=== PATIENT | female | born 1990 | race Caucasian/White ===

== ENCOUNTER 2016-11-01 20:17 | Emergency (ER) | payer OTHER ==
[~2016-11-01] VITALS: Ht 157.5 cm; Wt 70.0 kg
[~2016-11-01 20:17] MED LIST: AUGMENTIN875 MG PO; BACTRIM,SEPT1 TABLET PO; Colace PO; Feosol PO; Motrin PO; PRENATAL1 EACH PO; Percocet 5/325,Endoc PO; Tums PO; Tylenol Extra Streng PO
[2016-11-01 21:55] LABS: HEMATOCRIT 38.3 % (36.0-46.0); MCH 29.3 PG (29.0-34.0); MCV 83.8 FL (83-99); MEAN PLAT.VOLUME 9.5 uM^3 (9.5-12.4); PLATELET COUNT 282 K/uL (156-360); RBC DIS.WIDTH-CV 12.4 % (11.8-14.6); RBC DIS.WIDTH-SD 37.5 % (39-53); RED BLOOD COUNT 4.57 M/uL (3.80-5.20); WHITE BLOOD COUNT 9.5 K/uL (4.1-10.2)
[2016-11-01 22:09] LABS: CHLORIDE 106 mEq/L (99-109); POTASSIUM 3.6 mEq/L (3.7-5.4); SODIUM 139 mEq/L (136-147)
[2016-11-01 22:12] LABS: GLUCOSE 83 mg/dL (70-99)
[2016-11-01 22:13] LABS: ANION GAP 10 MEQ/L (2-14)
[2016-11-01 22:14] LABS: TOTAL BILIRUBIN 0.5 mg/dL (0.0-1.0)
[2016-11-01 22:15] LABS: ALKALINE PHOSPHATASE 40 IU/L (3-129); GFR ESTIMATE (CALCULATED) > 59 mL/min/
[2016-11-01 22:16] LABS: UREA NITROGEN (BUN) 9 mg/dL (9-23)
[2016-11-01 22:19] LABS: LIPASE 19 U/L (1.0-51.0)
[2016-11-01 22:25] LABS: QUANTITATIVE HCG < 4.0 MIU/ML
[2016-11-01] MEDS ORDERED: OMEPRAZOLE40 M1 PO (22:43)
[2016-11-01] MEDS ORDERED: CARAFATE1 GM PO (22:43)
[2016-11-01 23:00] VITALS: BP 118/62
== END 2016-11-01 23:06 | disposition home or self-care (01) ==
LOC: EME 20:17
DX: R10.13 Epigastric pain (principal); K21.9 Gastro-esophageal reflux disease without esophagitis; F32.9 Major depressive disorder, single episode, unspecified
CPT/HCPCS: 80053; 81003; 83690; 84702; 85027; 99281; 99284

== ENCOUNTER 2017-01-22 02:26 | Emergency (ER) | payer OTHER ==
[~2017-01-22] VITALS: Ht 157.5 cm; Wt 71.3 kg
[~2017-01-22 02:26] MED LIST changes: +CARAFATE1 GM PO; +OMEPRAZOLE40 M1 PO
[2017-01-22] MEDS ORDERED: LANSOPRAZOLE15 MG PO (02:32)
[2017-01-22] MEDS ORDERED: NORCO 5/3251 TABLET PO (03:00)
[2017-01-22] MEDS ORDERED: PEN-VEE K,VEET500 MG PO (03:00)
[2017-01-22] MEDS ORDERED: MOTRIN600 MG PO (03:00)
[2017-01-22 03:20] VITALS: BP 125/96
== END 2017-01-22 03:20 | disposition home or self-care (01) ==
LOC: EME 02:26
DX: K08.89 Other specified disorders of teeth and supporting structures (principal); K02.9 Dental caries, unspecified
CPT/HCPCS: 99281; 99284